=== PATIENT | female | born 1965 | race Caucasian/White ===

== ENCOUNTER 2023-03-21 13:29 | Emergency (ER) | payer OTHER ==
[~2023-03-21] VITALS: Ht 160 cm; Wt 77.1 kg
[2023-03-21 13:37] VITALS: BP_SYST 119; PULSE 80; RESP 16; TEMP 97.8; O2SAT 98
[2023-03-21] MEDS ORDERED: HYDROcodone/ACETAMIN 5-325 MG TAB (NORCO/ VICODIN) PO ONE (14:15)
[2023-03-21] MEDS ORDERED: HYDR-3917 PO (17:44)
[2023-03-21 19:01] VITALS: BP_SYST 119; PULSE 80; RESP 16; TEMP 97.8; O2SAT 98
== END 2023-03-21 19:01 | disposition home or self-care (01) ==
LOC: SED 13:29
DX: S82.255A Nondisplaced comminuted fracture of shaft of left tibia, initial encounter for closed fracture (principal); Z79.899 Other long term (current) drug therapy; X50.0XXA Overexertion from strenuous movement or load, initial encounter; Y93.89 Activity, other specified; Y92.89 Other specified places as the place of occurrence of the external cause; Y99.8 Other external cause status
CPT/HCPCS: 73502; 73560-TC; 73700-TC; 76376; 99284